=== PATIENT | female | born 1935 | race Hispanic/Latino ===

== ENCOUNTER 2016-11-22 12:27 | Emergency (ER) | payer MEDICARE, BC ==
[2016-11-22 12:35] VITALS: BP 146/91; PULSE 91; RESP 18; TEMP 98.8; O2SAT 100
--- NOTE | 2016-11-22 13:02 | ED PDOC ---
HPI: Head Injury Time Seen by Provider: 11/22/16 12:32 Chief Complaint (Nursing): Trauma History Per: Patient History/Exam Limitations: no limitations Injury Occurred (Timing): Just Before Arrival Onset/Duration Of Symptoms: Sudden Onset Patient States: Fell Striking Head Description Of Injury (Context): fell while walking and struck nose and head Severity: Moderate Loss Of Consciousness: No Additional History Per: Patient Additional Complaint(s): Pt tripped and fell today. Right forehead hematoma and nose bleed noted. Denies LOC. mild pain with rom, no n/t/w, no syncope Past Medical History Reviewed: Historical Data, Nursing Documentation, Vital Signs Vital Signs: Last Vital Signs Temp 98.8 F 11/22/16 12:33 Pulse 91 H 11/22/16 12:33 Resp 18 11/22/16 12:33 BP 146/91 H 11/22/16 12:33 Pulse Ox 100 11/22/16 12:33 - Medical History PMH: Anxiety, Arthritis, Back Problems, Gall Bladder Disease, HTN (STRESS TEST 2014 DR FREED), Seizures (last one about 15 years ago) Denies: Chronic Kidney Disease - Surgical History Surgical History: Appendectomy (at 20 years old), Cholecystectomy (around 1977) - Family History Family History: States: Unknown Family Hx - Living Arrangements Living Arrangements: With Family - Social History Current smoker - smoking cessation education provided: No - Immunization History Hx Tetanus Toxoid Vaccination: Yes Hx Influenza Vaccination: No Hx Pneumococcal Vaccination: No - Home Medications Home Medications: Ambulatory Orders Medication Instructions Recorded Acetaminophen [Tylenol 325mg tab] 975 mg PO Q6 PRN #0 tab 05/21/16 Divalproex [Depakote ER] [address] 05/21/16 Divalproex [Depakote ER] [address] 05/21/16 Lidocaine 5% [Lidoderm] 1 ea TD DAILY patch 05/21/16 Losartan [Cozaar] 50 mg PO DAILY tab 05/21/16 Primidone [Mysoline] 50 mg PO DAILY tab 05/21/16 Primidone [Mysoline] 75 mg PO HS tab 05/21/16 lamoTRIgine [Lamictal] 50 mg PO DAILY tab 05/21/16 Butalbit/Acetamin/Caff/Codeine 1 cap PO Q6H 02/09/17 [Fioricet with Codeine 300 mg-50 mg-40 mg-30 M] Frovatriptan Succinate [Frova] 2.5 mg PO Q12H 05/23/16 ALPRAZolam [Xanax] 1 mg PO HS PRN #0 tab 06/01/16 Acetaminophen [Tylenol 325mg tab] 650 mg PO Q6 PRN #0 tab 06/01/16 Pantoprazole [Protonix EC Tab] 40 mg PO DAILY ect 06/01/16 Simethicone [Gas Relief] 80 mg PO DAILY PRN #30 06/01/16 Sulfamethoxazole/Trimethoprim 1 tab PO BID 5 Days 11/22/16 [Bactrim DS 800 mg-160 mg] - Allergies Allergies/Adverse Reactions: Allergies Allergy/AdvReac Type Severity Reaction Status Date / Time Influenza Virus Vaccines Allergy COUGH Verified 06/26/16 01:03 Penicillins Allergy URTICARIA Verified 06/26/16 01:03 vancomycin Allergy Verified 06/26/16 07:09 Review of Systems ROS Statement: Except As Marked, All Systems Reviewed And Found Negative Constitutional: Negative for: Fever, Chills Eyes: Negative for: Vision Change ENT: Positive for: Nose Pain. Negative for: Mouth Pain, Mouth Swelling, Throat Pain Cardiovascular: Negative for: Chest Pain, Palpitations Respiratory: Negative for: Cough, Shortness of Breath Gastrointestinal: Negative for: Nausea, Vomiting, Abdominal Pain Musculoskeletal: Positive for: Neck Pain. Negative for: Shoulder Pain, Arm Pain , Back Pain, Hand Pain, Leg Pain, Foot Pain Neurological: Positive for: Headache. Negative for: Weakness, Numbness Physical Exam - Reviewed Nursing Documentation Reviewed: Yes Vital Signs Reviewed: Yes - Physical Exam Appears: Positive for: Uncomfortable Head Exam: Positive for: NORMOCEPHALIC (mod forehead hematoma) Eye Exam: Positive for: Normal appearance, EOMI, PERRL. Negative for: Periorbital swelling, Periorbital tenderness, Conjunctival injection, Scleral icterus ENT: Positive for: Pharynx Is, TM Is/Are (nml bl), Other (mild left nose bleed no septal hematoma). Negative for: Pharyngeal Erythema, Tonsillar Exudate, Tonsillar Swelling Neck: Positive for: Normal, Painless ROM, Supple. Negative for: Decreased ROM, Limited ROM, Trachea Midline, Pain On Movement Of Neck Cardiovascular/Chest: Positive for: Regular Rate, Rhythm, Chest Non Tender. Negative for: Edema, Gallop, Murmur, Bradycardia, Tachycardia Respiratory: Positive for: Normal Breath Sounds. Negative for: Decreased Breath Sounds, Accessory Muscle Use, Crackles, Rales, Rhonchi, Stridor, Wheezing , Respiratory Distress Pulses-Radial (L): 2+ Pulses-Radial (R): 2+ Gastrointestinal/Abdominal: Positive for: Normal Exam, Bowel Sounds, Soft. Negative for: Tenderness Back: Positive for: Normal Inspection Extremity: Positive for: Normal ROM. Negative for: Tenderness, Pedal Edema, Calf Tenderness, Deformity, Swelling Neurologic/Psych: Positive for: Alert, zanjero II-XII, Oriented, Mood/Affect (calm) . Negative for: Motor/Sensory Deficits, Aphasia, Facial Droop - Laboratory Results Result Diagrams: 11/22/16 15:00 11/22/16 15:00 - ECG O2 Sat by Pulse Oximetry: 100 Medical Decision Making Medical Decision Makin pm IMPRESSION: Acute displaced fracture at the nasal bone more prominent in the left side. Diffuse opacification of the left nasal cavity could be due to hemorrhage. Small air-fluid level at the left maxillary sinus without evidence of acute fracture. IMPRESSION: No evidence of acute intracranial hemorrhage intracranial collection mass effect or midline shift. Right frontal scalp soft tissue swelling. Left nasal bone fracture and opacification of the left nasal cavity could be due to hemorrhage. Atrophy and presumed chronic microvascular white matter ischemic disease. advise augmentin. close ent follow up. Procedures - Additional Procedures Progress: pt left nare with a 4.4 com rapid pack. give augmentin Disposition - Clinical Impression Clinical Impression: Head injury, closed, Left-sided epistaxis, Nasal bone fracture - Patient ED Disposition Is Patient to be Admitted: Transfer of Care Counseled Patient/Family Regarding: Studies Performed, Diagnosis, Need For Followup - Disposition Referrals: Tre Sanchez MD [Staff Provider] - (3 to 4 days) Disposition: Transfer of Care Disposition Time: 14:44 Condition: GOOD Additional Instructions: Return if not bleeding returns or you feel dizzy, weakness, chest pain, short of breath. Prescriptions: Sulfamethoxazole/Trimethoprim [Bactrim DS 800 mg-160 mg] 1 tab PO BID 5 Days Instructions: Nasal Fracture (ED), Nosebleed (ED), Head Injury (ED) Forms: [employer] (Filipino) Patient Signed Over To: Baldemar Turk
--- NOTE | 2016-11-22 13:58 | CT ---
PROCEDURE: CT HEAD WITHOUT CONTRAST. HISTORY: trauma COMPARISON: None available. TECHNIQUE: Axial computed tomography images were obtained through the head/brain without intravenous contrast. Radiation dose: Total exam DLP = 899.7 mGy-cm. This CT exam was performed using one or more of the following dose reduction techniques: Automated exposure control, adjustment of the mA and/or kV according to patient size, and/or use of iterative reconstruction technique. FINDINGS: HEMORRHAGE: No intracranial hemorrhage. BRAIN: No mass effect or edema. Batm-sy-uhuvewfk atrophy noted. Mild white matter changes likely due to chronic microvascular ischemic disease. VENTRICLES: Unremarkable. No hydrocephalus. CALVARIUM: Unremarkable. PARANASAL SINUSES: Partial opacification of the ethmoid sinuses. Opacification of the left nasal cavity could be due to hemorrhage. MASTOID AIR CELLS: Partial opacification of the right mastoid. OTHER FINDINGS: Nasal bone fracture seen at the left side could be acute. IMPRESSION: No evidence of acute intracranial hemorrhage intracranial collection mass effect or midline shift. Right frontal scalp soft tissue swelling. Left nasal bone fracture and opacification of the left nasal cavity could be due to hemorrhage. Atrophy and presumed chronic microvascular white matter ischemic disease.
--- NOTE | 2016-11-22 14:34 | CT ---
PROCEDURE: CT MAXILLOFACIAL BONES WITHOUT CONTRAST HISTORY: trauma COMPARISON: None TECHNIQUE: Contiguous axial CT images of the maxillofacial bones were obtained. Coronal and sagittal reformats were generated. Radiation dose: Total exam DLP = 840.07 mGy-cm. This CT exam was performed using one or more of the following dose reduction techniques: Automated exposure control, adjustment of the mA and/or kV according to patient size, and/or use of iterative reconstruction technique. FINDINGS: NASAL BONES: There are nasal bone fractures seen more prominent at the left side. Nasal septum deviation to the right is also noted. There is left nasal cavity heterogeneous opacification could be due to hemorrhage in the nasal cavity. ORBITS: Unremarkable. PARANASAL SINUSES/ MASTOIDS: There is a small air-fluid level at the left maxillary sinus. Otherwise the sinuses are clear. MAXILLA: No evidence of acute displaced fracture MANDIBLE/ TEMPOROMANDIBULAR JOINTS: No evidence of acute displaced fracture. SKULL BASE: Unremarkable. TEMPORAL BONES: Middle ears and mastoid grossly unremarkable. OTHER FINDINGS: None. IMPRESSION: Acute displaced fracture at the nasal bone more prominent in the left side. Diffuse opacification of the left nasal cavity could be due to hemorrhage. Small air-fluid level at the left maxillary sinus without evidence of acute fracture.
--- NOTE | 2016-11-22 14:35 | CT ---
PROCEDURE: CT Cervical Spine without contrast HISTORY: Facial, head trauma. COMPARISON: None available. TECHNIQUE: Axial computed tomography images were obtained of the cervical spine without the use of intravenous contrast. Coronal and sagittal reformatted images were created and reviewed. Radiation dose: Total exam DLP = 474.99 mGy-cm. This CT exam was performed using one or more of the following dose reduction techniques: Automated exposure control, adjustment of the mA and/or kV according to patient size, and/or use of iterative reconstruction technique. FINDINGS: VERTEBRAE: No fracture. Normal alignment. No destructive bony lesion. DISCS/SPINAL CANAL/NEURAL FORAMINA: Disc degenerative change, uncovertebral hypertrophy. Discs heights are grossly preserved. PARASPINAL SOFT TISSUES: Unremarkable. OTHER FINDINGS: Incompletely visualized fluid/ blood in the nasopharynx and adjacent ethmoid air cells. IMPRESSION: No acute findings related to/accounting for the clinical presentation.
[2016-11-22] MEDS ORDERED: Sodium Chloride 0.9% 500 ML IV ONE (14:53)
[2016-11-22] MEDS ORDERED: Amoxicillin-Clav 875-125 mg Tab PO STA (14:58)
[2016-11-22] MEDS ORDERED: Amoxicillin-Clav 875-125 mg Tab PO ONE (15:26)
[2016-11-22 15:29] LABS: ALBUMIN 4.7 g/dL (3.5-5.0); ALT/SGPT 24 U/L (9-52); AST/SGOT 31 U/L (14-36); BLOOD UREA NITROGEN 20 mg/dl (7-17); CALCIUM 10.4 mg/dL (8.4-10.2); GFR AFRICAN-AMERICAN > 60; GFR NON-AFRICAN AMERICAN > 60
[2016-11-22 15:32] LABS: BASO % 0.1 % (0.0-2.0); EOS # 0.1 K/uL (0.0-0.7); EOS % 0.5 % (0.0-4.0); HEMOGLOBIN 14.9 g/dL (12.0-16.0); LYMPH # 2.5 K/uL (1.0-4.3); LYMPH % 19.1 % (20.0-40.0); MEAN CORPUSCULAR HEMOGLOBIN 27.5 pg (27.0-31.0); MEAN CORPUSCULAR HGB CONC 32.5 g/dL (33.0-37.0); MEAN PLATELET VOLUME 8.1 fl (7.2-11.7); NEUT # 9.4 K/uL (1.8-7.0); NEUT % 72.3 % (50.0-75.0); RBC 5.42 Mil/uL (3.80-5.20); RED CELL DISTRIBUTION WIDTH 15.2 % (11.5-14.5)
[2016-11-22 15:35] LABS: MEAN CELL VOLUME 84.5 fl (81.0-99.0)
--- NOTE | 2016-11-22 15:40 | ED PDOC ---
- Laboratory Results Result Diagrams: 11/22/16 15:00 11/22/16 15:00 Interpretation Of Abn Labs: 13 wbc - ECG O2 Sat by Pulse Oximetry: 100 Pulse Ox Interpretation: Normal - Progress ED Course And Treament: 1538: Stable. Took over care from Dr. Fortune. Fu on labs. Here with fall and nose bleed. Acute displaced fracture at the nasal bone more prominent in the left side. Diffuse opacification of the left nasal cavity could be due to hemorrhage. Small air-fluid level at the left maxillary sinus without evidence of acute fracture. 1600: Spoke with Dr. Sanchez. Wants 7.5 Rhino put in. 1615: Advanced rhino rockets with no incident, but still with oozing blood on left nostril. Dr. Sanchez made aware and will come to the ED to see pt. 182: Dr. Sanchez cauterized pt. and bleeding stopped. Pt. with no dizziness. Fu with pcp. Will put on bactrim. Ambulated with no issues. No weakness. AAOx3. Disposition - Clinical Impression Clinical Impression: Head injury, closed, Left-sided epistaxis, Nasal bone fracture - POA Present On Arrival: Falls Or Trauma - Disposition Referrals: Tre Sanchez MD [Staff Provider] - (3 to 4 days) Disposition: Routine/Home Disposition Time: 18:23 Condition: GOOD Additional Instructions: Return if not bleeding returns or you feel dizzy, weakness, chest pain, short of breath. Prescriptions: Sulfamethoxazole/Trimethoprim [Bactrim DS 800 mg-160 mg] 1 tab PO BID 5 Days Instructions: Nasal Fracture (ED), Nosebleed (ED), Head Injury (ED) Forms: [employer] (Belizean)
[2016-11-22] MEDS ORDERED: Silver Nitrate Topical - Stick ONE ×2 (17:15→17:18)
--- NOTE | 2016-11-23 02:26 | OP ---
PROCEDURE DATE: 11/22/2016 PROCEDURE: Cauterization of epistaxis. SURGEON: Tre Sanchez MD DESCRIPTION OF PROCEDURE: The patient was placed in seated position. Nasal speculum was used to view the nasal. Bleeding was noted to be coming from the superior and anterior portion of the septum on the left. Silver nitrate sticks were used to cauterize the septum. Bleeding was noted to be controlled. The patient tolerated the procedure well. Tre Sanchez MD MTDD
== END 2016-11-22 18:45 | disposition home or self-care (01) ==
LOC: H.ER 12:27
DX: S02.2XXA Fracture of nasal bones, initial encounter for closed fracture (principal); S09.90XA Unspecified injury of head, initial encounter; W01.0XXA Fall on same level from slipping, tripping and stumbling without subsequent striking against object, initial encounter; Y93.01 Activity, walking, marching and hiking; R04.0 Epistaxis; I10 Essential (primary) hypertension
CPT/HCPCS: 30901; 70450; 70486; 72125; 80053; 85025; 96360; 99284; J7040

== ENCOUNTER 2017-03-05 15:51 | Emergency (ER) | payer MEDICARE, BC ==
[2017-03-05 15:58] VITALS: BP 150/97; PULSE 86; RESP 16; TEMP 97.4; O2SAT 100
--- NOTE | 2017-03-05 16:40 | ED PDOC ---
HPI: Trauma/Fall - HPI Time Seen by Provider: 03/05/17 16:03 Chief Complaint (Nursing): Back Pain Chief Complaint (Provider): Back Pain History Per: Patient History/Exam Limitations: no limitations Onset/Duration Of Symptoms: Mins (Prior to Arrival) Additional Complaint(s): 81 y/o female presents to the ED with EMS for back pain due to tripping and falling. She tripped a step and landed on her back and tail bone. Patient notes soared back but is able to walk. Denies, lightheadedness, dizziness, loss of consciousness, chest pain, or vomiting. PMD: Dennis Valdez MD Past Medical History Reviewed: Historical Data, Nursing Documentation, Vital Signs Vital Signs: Last Vital Signs Temp 97.4 F L 03/05/17 15:56 Pulse 86 03/05/17 15:56 Resp 16 03/05/17 15:56 BP 150/97 H 03/05/17 15:56 Pulse Ox 100 03/05/17 16:55 - Medical History PMH: Anxiety, Arthritis, Back Problems, Gall Bladder Disease, HTN (STRESS TEST 2014 DR FREED), Seizures (last one about 15 years ago) Denies: Chronic Kidney Disease - Surgical History Surgical History: Appendectomy (at 20 years old), Cholecystectomy (around 1977) - Family History Family History: States: Unknown Family Hx - Social History Current smoker - smoking cessation education provided: No Alcohol: None Drugs: Denies - Immunization History Hx Tetanus Toxoid Vaccination: Yes Hx Influenza Vaccination: No Hx Pneumococcal Vaccination: No - Home Medications Home Medications: Ambulatory Orders Medication Instructions Recorded Acetaminophen [Tylenol 325mg tab] 975 mg PO Q6 PRN #0 tab 05/21/16 Divalproex [Depakote ER] [address] 05/21/16 Divalproex [Depakote ER] [address] 05/21/16 Lidocaine 5% [Lidoderm] 1 ea TD DAILY patch 05/21/16 Losartan [Cozaar] 50 mg PO DAILY tab 05/21/16 Primidone [Mysoline] 50 mg PO DAILY tab 05/21/16 Primidone [Mysoline] 75 mg PO HS tab 05/21/16 lamoTRIgine [Lamictal] 50 mg PO DAILY tab 05/21/16 Butalbit/Acetamin/Caff/Codeine 1 cap PO Q6H 05/23/16 [Fioricet with Codeine 300 mg-50 mg-40 mg-30 M] Frovatriptan Succinate [Frova] 2.5 mg PO Q12H 05/23/16 ALPRAZolam [Xanax] 1 mg PO HS PRN #0 tab 06/01/16 Acetaminophen [Tylenol 325mg tab] 650 mg PO Q6 PRN #0 tab 06/01/16 Pantoprazole [Protonix EC Tab] 40 mg PO DAILY ect 06/01/16 Simethicone [Gas Relief] 80 mg PO DAILY PRN #30 06/01/16 Sulfamethoxazole/Trimethoprim 1 tab PO BID 5 Days tab 11/22/16 [Bactrim DS 800 mg-160 mg] - Allergies Allergies/Adverse Reactions: Allergies Allergy/AdvReac Type Severity Reaction Status Date / Time Influenza Virus Vaccines Allergy COUGH Verified 03/05/17 15:56 Penicillins Allergy URTICARIA Verified 03/05/17 15:56 Review of Systems ROS Statement: Except As Marked, All Systems Reviewed And Found Negative (As per HPI, otherwise negative) Review Of Systems: ROS cannot be obtained secondary to pt's inabilty to answer questions. Cardiovascular: Negative for: Chest Pain Gastrointestinal: Negative for: Vomiting Musculoskeletal: Positive for: Back Pain Neurological: Negative for: Dizziness, Other (lightheadedness, loss of consciousness) Physical Exam - Reviewed Nursing Documentation Reviewed: Yes Vital Signs Reviewed: Yes - Physical Exam Appears: Positive for: Non-toxic, No Acute Distress Head Exam: Positive for: ATRAUMATIC, NORMAL INSPECTION, NORMOCEPHALIC Skin: Positive for: Normal Color, Warm, Dry Cardiovascular/Chest: Positive for: Regular Rate, Rhythm. Negative for: Murmur Respiratory: Positive for: Normal Breath Sounds. Negative for: Accessory Muscle Use, Respiratory Distress Back: Positive for: Other (mild tenderness to lumbar sacral spine) Extremity: Positive for: Normal ROM. Negative for: Deformity Neurologic/Psych: Positive for: Alert, Oriented (x3) - ECG O2 Sat by Pulse Oximetry: 100 (RA) Pulse Ox Interpretation: Normal Medical Decision Making Medical Decision Making: Time: 16:08 Plan: --Lumbar spine x-ray --Tylenol 650mg PO --Sacrum x-ray --Reevaluation Scribe Attestation: Documented by Yanira Hebert acting as a scribe for Ariana Reddy MD. Scribe Attestation: All medical record entries made by the Scribe were at my direction and personally dictated by me. I have reviewed the chart and agree that the record accurately reflects my personal performance of the history, physical exam, medical decision making, and the department course for this patient. I have also personally directed, reviewed, and agree with the discharge instructions and disposition. Disposition - Clinical Impression Clinical Impression: Fall - Patient ED Disposition Is Patient to be Admitted: Transfer of Care Doctor Will See Patient In The: Office Counseled Patient/Family Regarding: Diagnosis, Need For Followup - Disposition Disposition: Transfer of Care Disposition Time: 16:55 Condition: STABLE Forms: [employer] (Estonian) Patient Signed Over To: Baldemar Turk Present On Arrival: Falls Or Trauma
--- NOTE | 2017-03-05 17:56 | ED PDOC ---
- ECG O2 Sat by Pulse Oximetry: 100 (RA) Pulse Ox Interpretation: Normal - Radiology X-Ray: Interpreted by Me, Viewed By Me X-Ray Interpretation: No Acute Disease - Progress ED Course And Treament: 1758: Stable. AAOx3. Pain controlled and ambulated with no issues. Tolerated PO. Fu with pcp. Disposition - Clinical Impression Clinical Impression: Fall, Back injury - POA Present On Arrival: Falls Or Trauma - Disposition Referrals: [facility] [Outside] - 03/07/17 Disposition: Routine/Home Disposition Time: 17:59 Condition: STABLE Additional Instructions: Return if not better in 3 days. Instructions: Acute Low Back Pain (ED) Forms: [employer] (Tristanian)
--- NOTE | 2017-03-06 10:03 | RAD ---
PROCEDURE: Sacrum x-ray frontal view HISTORY: slip and fall COMPARISON: Lumbosacral spine x-ray same day TECHNIQUE: Single frontal view of the sacrum was performed. Sacral foramina have normal outline. No sacroiliac joint widening is seen. No appreciable fracture is noted. FINDINGS: See above IMPRESSION: No appreciable fracture.
--- NOTE | 2017-03-06 10:11 | RAD ---
PROCEDURE: Radiographs of the Lumbar Spine. HISTORY: slip and fall COMPARISON: No prior. FINDINGS: BONES: Five views of the lumbosacral spine were performed. No acute compression fractures seen in the lumbar spine region. Degenerative changes are seen throughout the lumbosacral spine region. Minimal anterior listhesis of L4 over L5 is noted. Moderate degenerative facet changes are noted throughout the lumbar spine region. There are some additional degenerative changes seen in the lower thoracic spine although not as well seen. No appreciable sacral fracture is noted. Posterior elements are intact. Pedicles are intact. No sacroiliac joint widening is seen. Sacral foramina are otherwise unremarkable. Small calcified density is seen in the inferior pre coccygeal region, nonspecific and possibly related to overlying calcification in the soft tissues. DISC SPACES: See above OTHER FINDINGS: There is a large calcified mass seen in the left upper quadrant region probably representing diffusely calcified spleen although other etiologies are not excluded. IMPRESSION: No appreciable fracture. Degenerative disc disease and degenerative facet change. Nonspecific large calcified mass in the left upper quadrant requiring further clinical follow-up. Correlation with other prior CT scans would be helpful. This was not mentioned on the preliminary report provided by the emergency room physician. Study was placed into the PA review folder.
== END 2017-03-05 18:16 | disposition home or self-care (01) ==
LOC: H.ER 15:51
DX: S39.92XA Unspecified injury of lower back, initial encounter (principal); W01.0XXA Fall on same level from slipping, tripping and stumbling without subsequent striking against object, initial encounter; Y92.89 Other specified places as the place of occurrence of the external cause; M51.36 Other intervertebral disc degeneration, lumbar region